=== PATIENT | male | born 1975 | race Two or more races ===

== ENCOUNTER → 2024-12-11 | Outpatient (CLI) | payer BC, SELFPAY ==
[2024-12-11 14:16] LABS: Collection Type, Urine Clean Catch
[2024-12-11 15:56] LABS: Bilirubin,Urine 1+ (Negative); Blood,Urine Negative (Negative); Clarity,Urine Clear (Clear/Hazy); Color,Urine Drk-Yellow (Lt Yel-Yel); Glucose, Urine Trace (Negative); Ketones,Urine 1+ (Negative); Leukocyte Esterase,Urine Negative (Negative); Nitrite,Urine Positive (Negative); Protein,Urine 1+ (Neg - Trace); RBC,Urine 5 /hpf (0-3); Specific Gravity,Urine 1.034 (1.001-1.035); Squamous Epithelial Cell,Urine 1 /hpf (0-5); WBC,Urine < 1 /hpf (0-5)
== END | disposition home or self-care (01) ==
LOC: SLDO 14:08
PROVIDERS: PCP Specialist; Referring Provider Specialist; Visit Provider Specialist
DX: N39.0 Urinary tract infection, site not specified (principal)
CPT/HCPCS: 81001; 87086

== ENCOUNTER → 2024-12-11 | Outpatient (CLI) | payer OTHER, SELFPAY ==
--- NOTE | 2024-12-11 | XR_ITS ---
Examination: Retroperitoneal ultrasound, complete Technique: Multiple high resolution grayscale images of the retroperitoneum obtained, including kidneys and bladder. Exam date and time:December 11, 2024 at 1433 hours INDICATIONS: Right flank pain beginning 2 days ago, history urinary tract infections FINDINGS: Right kidney 10.7 cm cortex 2.0 cm 9 mm lower pole calculus Left kidney 10.8 cm cortex 2.8 cm Midpole 7 mm calculus Moderate bilateral renal parenchymal scar formation No bladder mass, bladder prevoid volume 146 cc No prostatomegaly IMPRESSION: Bilateral nonobstructing renal calculi
[2024-12-11 16:00] LABS: Prostate Specific Antigen 1.08 ng/mL (0-4.00)
== END | disposition home or self-care (01) ==
LOC: CDIM 14:16 → COPL 14:46
PROVIDERS: PCP Specialist; Referring Provider Specialist; Visit Provider Radiology Diagnostic Radiology
DX: N20.0 Calculus of kidney (principal); N40.1 Benign prostatic hyperplasia with lower urinary tract symptoms
CPT/HCPCS: 36415; 76770; 84153

== ENCOUNTER → 2025-02-21 | Outpatient (CLI) | payer BC, SELFPAY ==
[2025-02-21 11:38] LABS: Collection Type, Urine Clean Catch; Squamous Epithelial Cell,Urine 0 /hpf (0-5)
[2025-02-21 12:18] LABS: Bilirubin,Urine Negative (Negative); Blood,Urine Negative (Negative); Clarity,Urine Clear (Clear/Hazy); Color,Urine Lt-Yellow (Lt Yel-Yel); Glucose, Urine Negative (Negative); Ketones,Urine Negative (Negative); Leukocyte Esterase,Urine Negative (Negative); Nitrite,Urine Negative (Negative); PH,Urine 7.0 (5.0-7.0); Protein,Urine Negative (Neg - Trace); RBC,Urine 3 /hpf (0-3); Specific Gravity,Urine 1.016 (1.001-1.035); Urobilinogen,Urine Negative mg/dL (0.0-1.0); WBC,Urine < 1 /hpf (0-5)
== END | disposition home or self-care (01) ==
LOC: SLDO 11:28
PROVIDERS: PCP Specialist; Referring Provider Specialist; Visit Provider Specialist
DX: R10.9 Unspecified abdominal pain (principal); Z87.442 Personal history of urinary calculi
CPT/HCPCS: 81001; 87086

== ENCOUNTER → 2025-02-21 | Outpatient (CLI) | payer OTHER, SELFPAY ==
--- NOTE | 2025-02-21 | XR_ITS ---
Examination: Retroperitoneal ultrasound, complete Technique: Multiple high resolution grayscale images of the retroperitoneum obtained, including kidneys and bladder. Exam date and time:February 21, 2025 1118 hours INDICATIONS: Onset right flank pain today, history kidney stones FINDINGS: Right kidney 10.2 cm renal cortex 2.0 cm Multiple renal calculi, the largest in the midpole 6 mm lower pole 7 mm Left kidney 11.6 cm cortex 2.3 cm 7 mm lower pole calculus No hydronephrosis Contracted urinary bladder No prostatomegaly IMPRESSION: Bilateral nonobstructing renal calculi
== END | disposition home or self-care (01) ==
PROVIDERS: PCP Specialist; Referring Provider Specialist; Visit Provider Specialist
DX: N20.0 Calculus of kidney (principal)
CPT/HCPCS: 76770

== ENCOUNTER → 2025-04-27 | Outpatient (CLI) | payer BC, SELFPAY ==
--- NOTE | 2025-04-27 14:07 | XR_ITS ---
Examination: Retroperitoneal ultrasound, complete Technique: Multiple high resolution grayscale images of the retroperitoneum obtained, including kidneys and bladder. Exam date and time:April 27, 2025, 1422 hours INDICATIONS: Onset right flank pain today FINDINGS: Right kidney 11.2 cm cortex 2.2 cm Left kidney 11.5 cm cortex 2.4 cm Moderate renal scar formation No hydronephrosis No bladder mass or bladder calculi Bladder prevoid volume 128 cc No prostatomegaly no prostate nodules IMPRESSION: Moderate renal scar formation, no hydronephrosis or renal calculi
== END | disposition home or self-care (01) ==
PROVIDERS: PCP Specialist; Referring Provider Specialist; Visit Provider Specialist
DX: N28.89 Other specified disorders of kidney and ureter (principal)
CPT/HCPCS: 76770

== ENCOUNTER → 2025-04-27 | Outpatient (CLI) | payer BC, SELFPAY ==
[2025-04-27 14:09] LABS: Collection Type, Urine Clean Catch; Squamous Epithelial Cell,Urine 0 /hpf (0-5); WBC,Urine 0 /hpf (0-5)
[2025-04-27 14:51] LABS: Bilirubin,Urine Negative (Negative); Blood,Urine Negative (Negative); Clarity,Urine Clear (Clear/Hazy); Color,Urine Colorless (Lt Yel-Yel); Glucose, Urine Negative (Negative); Ketones,Urine Negative (Negative); Leukocyte Esterase,Urine Negative (Negative); Nitrite,Urine Negative (Negative); PH,Urine 7.5 (5.0-7.0); Protein,Urine Negative (Neg - Trace); RBC,Urine < 1 /hpf (0-3); Specific Gravity,Urine 1.003 (1.001-1.035); Urobilinogen,Urine Negative mg/dL (0.0-1.0)
== END | disposition home or self-care (01) ==
LOC: SLDO 14:00
PROVIDERS: PCP Specialist; Referring Provider Specialist; Visit Provider Specialist
DX: N20.0 Calculus of kidney (principal)
CPT/HCPCS: 81001; 87086

== ENCOUNTER 2025-05-02 12:47 | Observation (INO) | payer BC, SELFPAY ==
[2025-05-02] VITALS (13 sets, daily range): BP systolic 128–158; BP diastolic 67–98; PULSE 72–90; RESP 16–99; TEMP 36.2–37.1; O2SAT 95–100; BMI 28.3; BMI 29.0
--- NOTE | 2025-05-02 13:05 | EKG_ITS ---
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
--- NOTE | 2025-05-02 13:07 | PD.EDABDPN ---
ED Abdominal Pain RME/HPI General Chief Complaint: Abdominal Pain Stated complaint: ACUTE APPENDICITIS Time seen by provider: 05/02/25 13:01 Arrival date/time: 05/02/25 12:47 RME / HPI RME / HPI narrative: 50-year-old male patient with significant history of hypertension, was sent to us by PCP for acute appendicitis. Patient has been having right lower quadrant pain for the last 5 days, associated with nausea. Denies any fever denies any vomiting denies any diarrhea constipation. Patient went to PCP today and CT scan of the abdomen and pelvis showed acute appendicitis and was referred to us right away. Was given ceftriaxone IM in the clinic. Last p.o. intake candy bar 30 minutes ago. Related Data Home Medications ?Medication ?Instructions ?Recorded ?Confirmed lisinopril 20 mg tablet 20 mg PO QDAY #0 tabs 10/01/16 Previous Rx's ?Medication ?Instructions ?Recorded Hydrocodone/Acetaminophen * (NORCO 1 tab PO Q6H PRN PAIN #12 tabs 10/01/16 5/325 *) ibuprofen 600 mg tablet 600 mg PO Q6HR PRN PAIN #20 tabs 10/01/16 Allergies Allergy/AdvReac Type Severity Reaction Status Date / Time No Known Allergies Allergy Verified 05/02/25 12:51 Review of Systems Review of Systems Narrative Review of Systems: Review of system reviewed and within normal limits except mentioned in HPI ED Exam Narrative Physical exam: VITAL SIGNS: Reviewed. GENERAL APPEARANCE: Alert and interactive, follows commands, no acute distress, HEAD AND FACE: Non-traumatic. ENT: PERRL, pink conjunctivitis, eyelid no trauma, Mucous membrane moist. NECK: Supple, nontender, no nuchal rigidity. CHEST: No tenderness, no crepitus, no paradoxical movement, no retractions. LUNGS: Clear, well ventilated, symmetric, no rales, no wheezing, no ronchi, no stridor, good breath sounds bilaterally. HEART: Regular rate, regular rhythm, no murmur, no gallops. ABDOMEN: Soft, positive bowel sounds, nondistended, no guarding, + right lower quadrant tenderness, no rebound, no masses, RECTAL: Deferred. GENITAL: Deferred. NEUROLOGICAL: Gross motor function intact sensory function intact, Appropriate for age. MUSCULOSKELETAL: low back nontender, full range of motion. EXTREMITIES: Nontender, full range of motion. SKIN: Color pink, dry, no rash, no lacerations, no abrasions, no contusions. LYMPHATICS: Deferred. Course Quality Measures none Orders Category Date Time Status Patient Condition Routine Admission 05/02/25 15:[address] in Observation Status Routine Admission 05/02/25 15:35 Active Activity as Tolerated Routine Care 05/02/25 15:[address] Screening NOW Care 05/02/25 13:32 Active EKG (ED ONLY) *Do not use* NOW Care 05/02/25 13:06 Completed Obtain Written Consent For: NOW Care 05/02/25 15:35 Active Consult to General Surgery Stat Cons 05/02/25 15:[address] abdomen pelvis w con Stat Exams 05/02/25 13:32 Completed EKG (ED Only) Stat Exams 05/02/25 13:05 Draft CBC [CBC] Stat Lab 05/02/25 13:17 Completed CMP [Comprehensive Metabolic Panel] Stat Lab 05/02/25 13:17 Completed CRP [C-Reactive Protein] Stat Lab 05/02/25 13:17 Completed PTT [Partial Thromboplastin Time] Stat Lab 05/02/25 13:17 Completed UA, C/S IF [Urinalysis, C/S if Indicated] Stat Lab 05/02/25 13:06 Ordered Piper/Tazo 3.375 gm Premix [Zosyn] Med 05/02/25 13:14 Discontinued 3.375 gm in 50 ml IV X1 Ringers Lactated 1000 ml [Lactated Ringers] 1,000 ml Med 05/02/25 13:15 Discontinued IV 999 mls/hr Sodium Chloride 0.9% 1000 ml [Ns] 1,000 ml Med 05/02/25 15:45 Ordered IV 100 mls/hr Code Status Routine Oth 05/02/25 15:35 Ordered Vital Signs Vital signs: Vital Signs Temperature 98.7 F 05/02/25 12:58 Pulse Rate 87 05/02/25 12:58 Respiratory Rate 16 05/02/25 12:58 Blood Pressure 154/98 H 05/02/25 12:58 Pulse Oximetry (%) 98 05/02/25 12:58 Oxygen Delivery Method Room Air 05/02/25 12:58 Abdominal Pain MDM MDM Narrative MDM Narrative:: 50-year-old male patient with significant history of hypertension, was sent to us by PCP for acute appendicitis. Patient has been having right lower quadrant pain for the last 5 days, associated with nausea. Denies any fever denies any vomiting denies any diarrhea constipation. Patient went to PCP today and CT scan of the abdomen and pelvis showed acute appendicitis and was referred to us right away. Was given ceftriaxone IM in the clinic. Last p.o. intake candy bar 30 minutes ago. Patient's workup today all came back unremarkable no leukocytosis. CT scan of the abdomen with contrast showed acute appendicitis Results discussed with the surgeon and the patient who decided to admit the patient for appendectomy. Patient received IV Zosyn. Patient data External records reviewed:: None Clinical information provided by:: patient Social determinants that could affect healthcare access:: none Patient has the following chronic illnesses:: Hypertension How is presenting disease/condition affected by chronic disease/condition?: uneffected by Evaluation data The following diagnostics were reviewed and interpreted by me:: lab results and radiology exam(s) Lab and/or radiology exams considered but not ordered:: None Interpretation Summary: See results MDM Medications / Prescriptions Medications or Prescriptions considered but not ordered:: None Medication administrations:: Medication Administration History Sodium Chloride (Ns) 1,000 mls @ 100 mls/hr IV .Q10H JASMINE Stop: 06/01/25 15:44 Discontinued Medications Piperacillin/Tazobactam/Dextrose (Zosyn) 3.375 gm in 50 mls @ 100 mls/hr IV X1 ONE; Protocol Stop: 05/02/25 13:43 Last Infusion: 05/02/25 14:39 Dose: Infused Documented By: Admin: 05/02/25 13:54 Dose: 100 mls/hr Documented By: ED Lactated Ringer's (Lactated Ringers) 1,000 mls @ 999 mls/hr IV .Q1H1M ONE Stop: 05/02/25 14:15 Last Admin: 05/02/25 15:13 Dose: 999 mls/hr Documented By: ED IV fluids IV Zosyn Consultations Consultation(s) initiated? (list below): Yes Consultation #1 (Physician, Specialty, Details): Dr Welsh, general surgeon on-call, who examined the patient in the ED and admitted the patient Diagnosis Differential diagnosis abdominal pain: abdominal pain, acute appendicitis and constipation Most likely diagnosis given after review of the tests above:: Acute appendicitis Admission Indicated Admission indicated?: not indicated Admission Request Was there a request for admission?: Yes Admission Attestation Admission request attestation: Dr Montoya agrees to accept the patient for admission. Disposition Plan Disposition Plan: Admit Discharge Plan Plan Patient Disposition: Admit Acute Care w/in Hospital Prescriptions/Referrals Prescriptions/Med Rec: No Action lisinopril 20 MG tablet 20 mg PO QDAY Qty: 0 ibuprofen 600 MG tablet 600 mg PO Q6HR PRN (Reason: PAIN) Qty: 20 0RF Hydrocodone/Acetaminophen * (NORCO 5/325 *) 1 TAB tablet 1 tab PO Q6H PRN (Reason: PAIN) Qty: 12 0RF Referrals: No Primary/Family,Physician [Primary Care Provider] - In 1 week Problem List Clinical Impression: Acute appendicitis Patient/Caregiver Discharge Instructions Print Language: Pakistani Stand Alone Forms: Raissa Award Info., Patient Portal Info Letter
[2025-05-02 13:30] LABS: Basophils # (Auto) 0.0 Thou/mm3 (0.0-0.2); Basophils % (Auto) 0 % (0-2.5); Eosinophils # (Auto) 0.0 Thou/mm3 (0.0-0.5); Eosinophils % (Auto) 0 % (0-10); Hematocrit 44.4 % (41.0-53.0); Hemoglobin 15.5 g/dL (13.5-16.0); Immature Granulocytes Auto 0.01 Thou/mm3 (0.00-0.00); Lymphocytes # (Auto) 2.3 Thou/mm3 (1.0-4.8); Lymphocytes % (Auto) 30 % (10-50); Mean Corpuscular HGB Conc 34.9 g/dl (31.0-37.0); Mean Corpuscular Hemoglobin 30.0 pg (25.0-35.0); Mean Corpuscular Volume 86 fL (80-100); Monocytes # (Auto) 0.6 Thou/mm3 (0.0-0.8); Monocytes % (Auto) 8 % (0-12); Neutrophils # (Auto) 4.6 Thou/mm3 (1.8-7.7); Neutrophils % (Auto) 61 % (37-80); Nucleated Red Blood Cell # 0.00 Thou/mm3 (0.00-0.00); Nucleated Red Blood Cell % 0 /100 WBC (0); Platelet Count 197 Thou/mm3 (140-440); RDW Standard Deviation 40.0 fL (35.1-43.9); Red Blood Count 5.17 Miln/mm3 (4.50-5.90); White Blood Count 7.5 Thou/mm3 (3.8-10.6)
--- NOTE | 2025-05-02 13:30 | PC.NURSE ---
Pt. here from home to room 10, pt.'s son is bedside, pt. states he was sent here for acute appendicitis, pt.'s states he had a CT done this morning that was ordered by his primary for right lower abdominal pain that started back in November, pt. states all along he thought he had kidney stones, pt. states his primary would give him antibiotics and he would feel better, pt. states on Wednesday the pain started back again and his primary ordered the CT for this am. Pt. states he has nausea but no vomiting. Pt. son is bedside. Pt. sitting up in bed, pt. states he is waiting to have a CT with contrast done.
--- NOTE | 2025-05-02 13:32 | XR_ITS ---
Examination: CT abdomen with intravenous contrast CT pelvis with intravenous contrast 2-D coronal reconstructions 2-D sagittal reconstructions Date and time of exam:AprilMay 02, 2025, 1435 hours INDICATIONS: Onset right lower abdominal pain this week COMPARISON: May 02, 2025 10:32 AM. CTDI: vol (mGy) 7.29 DLP: (mGycm) 127 Technique: Multiple axial sections of the abdomen and pelvis have been obtained. 64 slice high-resolution scanner used. 3 mm axial sections have been obtained, post intravenous injection 60 cc [id number] 2-D sagittal, coronal reconstructions obtained. Low dose protocols were performed. One or more of the following dose reduction techniques were used; automated exposure control, adjustment of the mA and/or KV according to patient size, use of iterative reconstruction technique. Findings: No focal liver or splenic lesions No gallstones No pancreatic or adrenal mass No renal or ureteral calculi, no hydronephrosis Appendix is inflamed enlarged and projects medial and below the cecum No pelvic abscess Colonic diverticulosis Contracted urinary bladder IMPRESSION: Findings most consistent with early acute appendicitis, the appearance should be clinically correlated
[2025-05-02 13:38] LABS: Partial Thromboplastin Time 27.1 Seconds (22.0-36.0)
[2025-05-02 13:49] LABS: Alanine Aminotransferase 24 U/L (10-49); Albumin, Serum 4.6 gm/dL (3.5-5.0); Albumin/Globulin Ratio 1.6 (1.2-2.2); Alkaline Phosphatase 71 U/L (46-116); Anion Gap 7 (7-16); Aspartate Amino Transferase 19 U/L (0-34); BUN/Creatinine Ratio 11 Ratio (12-20); Bilirubin,Total 1.3 mg/dL (0.3-1.2); Blood Urea Nitrogen 11 mg/dL (9-23); Calcium 9.5 mg/dL (8.3-10.6); Calcium (Corrected) 9.5 mg/dL (8.5-10.1); Carbon Dioxide 31.1 mMol/L (20.0-31.0); Chloride 103 mMol/L (98-107); Creatinine (Component) 1.0 mg/dL (0.6-1.3); Estimated Creatinine Clearance 86.6 mL/min (>60); Globulin 2.8 gm/dL (2.3-3.5); Glucose 121 mg/dL (74-106); Osmolality,Calculated 281 (275-295); Potassium 4.3 mMol/L (3.4-5.1); Sodium 141 mMol/L (136-145); Total Protein 7.4 gm/dL (5.7-8.2); eGFR > 60 See Note
[2025-05-02] MEDS: PIPER/TAZO 3.375 GM PREMIX 3.375 GM/50 ML BAG IV ×2 (13:54→20:24)
[2025-05-02 14:09] LABS: C-Reactive Protein 1.2 mg/dL (0.0-0.9)
[2025-05-02] MEDS: RINGERS LACTATED 1000 ML 1,000 ML 999 ML IV (15:13)
[2025-05-02 15:51] LABS: Collection Type, Urine Clean Catch
[2025-05-02 16:01] LABS: Bacteria,Urine Rare; Bilirubin,Urine Negative (Negative); Blood,Urine Negative (Negative); Clarity,Urine Clear (Clear/Hazy); Color,Urine Lt-Yellow (Lt Yel-Yel); Culture Indicated,Urine Not Indicated; Glucose, Urine Negative (Negative); Ketones,Urine Negative (Negative); Leukocyte Esterase,Urine Negative (Negative); Nitrite,Urine Negative (Negative); PH,Urine 7.0 (5.0-7.0); Protein,Urine Negative (Neg - Trace); RBC,Urine 1 /hpf (0-3); Specific Gravity,Urine 1.023 (1.001-1.035); Squamous Epithelial Cell,Urine < 1 /hpf (0-5); Urobilinogen,Urine Negative mg/dL (0.0-1.0); WBC,Urine < 1 /hpf (0-5)
[2025-05-02] MEDS: SODIUM CHLORIDE 0.9% 1000 ML 1,000 ML 100 ML IV ×2 (16:32→22:29)
--- NOTE | 2025-05-02 17:44 | ESHP_ITS ---
HPI Date of Admission 05/02/25 15:35 Chief Complaint Chief Complaint: Patient is admitted with the complaints of acute appendicitis HPI History of present illness revealed that the patient has been having pain in the right flank for about 5 days the pain is intermittent and not very severe and not crescendo type. Patient denies any history of vomiting but he was nauseated. He was eating well and his bowel movements were normal. He was seen by his family physician patient had a CT scan of the abdomen today and it showed acute appendicitis. Therefore he was advised to go to the emergency room. Dr. Stephenson who is giving him some pain medication with Toradol. Patient had a similar problem in November of this year and again in January of this year which resolved spontaneously. The first time he took some antibiotics p.o. patient denies any other major medical problems. 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 Meds Home Medications and Allergies Home Medications ?Medication ?Instructions ?Recorded ?Confirmed ?Type lisinopril 20 mg tablet 20 mg PO QDAY #0 tabs History Allergies Allergy/AdvReac Type Severity Reaction Status Date / Time No Known Allergies Allergy Verified 05/02/25 12:51 Exam Vital Signs Temp Pulse Resp BP Pulse Ox O2 Del Method 97.4 F 79 16 139/98 H 95 Room Air 05/02/25 17:00 05/02/25 17:00 05/02/25 17:00 05/02/25 17:00 05/02/25 17:00 05/02/25 17:00 Narrative Exam Physical examination revealed a well-built well-nourished middle-aged male who is 5 foot 5 inches tall weighing 174 pounds with BMI of 29 Constitutional Constitutional: mild distress Routine Neck Exam Comments: Within normal limits Routine Respiratory Exam Comments: Good breath sounds on both sides Routine Cardiovascular Exam Comments: Sinus rhythm Routine Abdominal Exam Comments: Abdomen has some tenderness on the suprapubic region but there is no rebound or rigidity or McBurney's point tenderness. Bowel sounds are present but hypoactive Routine Rectal Exam Comments: Deferred Routine Exam Comments: Deferred Routine Extremities Exam Comments: Within normal limits Results Results: Laboratory Laboratory Narrative: Patient patient's laboratory workup showed no evidence of leukocytosis and they are all within normal limits Results: Imaging Imaging narrative: CT scan of the abdomen showed enlarged appendix with some Jamie appendiceal inflammation suggesting early appendicitis Assessment & Plan Additional Assessment Additional comments: Impression: Abdominal pain of unknown etiology Rule out appendicitis Plan Plan: I had a lengthy discussion with the patient and his regarding his condition. Patient does not have any significant abdominal pain or tenderness to correlate in acute appendicitis clinically. However there is an enlarged appendix on the CT scan below and medial to the cecum. This was confirmed by 2 CT scans 1 with contrast and 1 without contrast I gave him the option of antibiotic therapy for 1 day and then p.o. antibiotics as an outpatient. Since the patient has had repeated episodes he wants to make sure that he does not come again with a similar problem. I do not have any assurance that the present problem is acute appendicitis but nevertheless appendix is enlarged and removal is probably indicated on her recurrent abdominal pain I explained to him that the laparoscopic approach would be performed and the risk of the operation including bowel injury bleeding and the need for open appendectomy were all explained to the patient. He is agreeable to proceed with surgery. Quality Measures Quality Measures none
--- NOTE | 2025-05-02 19:16 | SUR.PHASEI ---
pt received to [facility]. vss. breathing even and unlabored. denies pain and nausea. dressings intact to abdomen x3 gauze and metapore tape. report from dr siu, dr sanchez and nurse peter.
--- NOTE | 2025-05-02 19:18 | ESOP_ITS ---
Date of Procedure 05/02/25 Pre Op Diagnosis Acute appendicitis Post Op Diagnosis Same Procedure Laparoscopic appendectomy Findings Patient is found to have inflamed appendix which was firmly adherent to the posterior abdominal wall but there is no purulent material. This appeared chronic infection of the appendix Procedure Description After the patient was placed in supine position and anesthesia was administered with endotracheal intubation. Abdomen was prepped with ChloraPrep solution and draped in a sterile manner. A timeout was performed and a small incision was made just above the umbilicus. Fascia was cleaned and Veress needle was inserted to obtain a pneumoperitoneum up to 15 mmHg. Then I introduced a 12 mm trocar at the umbilicus with a 10 mm camera. Patient was kept in Trendelenburg position with the left lateral tilt. Intra-abdominal organs were visualized and this showed omentum covering the right lower quadrant. A 5 mm trocar was inserted in the right lower quadrant under direct vision and using a laparoscopic Oliverio I move the omentum and identified the appendix. Appendix was inflamed in its entire length and was located medial to the cecum and inferior to the cecum and was stuck to the posterior abdominal wall making it difficult to retract. Another 5 mm trocar was inserted in the left lower quad rant under direct vision and using Harmonic gracy I dissected the mesoappendix cauterizing the vessels. When the base of the appendix was reached this was stapled using an Endo cutter 35 power frankie. Then the appendix was retrieved through the Endopouch through the umbilical port. Then after irrigating and cleaning the pelvis and the right lower quadrant all the trocars were pulled out and the pneumoperitoneum was let out. Fascia was closed with interrupted 0 Ethibond and then I injected half percent Marcaine with epinephrine for analgesia. Skin was then closed with interrupted 4-0 nylon stitches and a Tegaderm dressing was applied. Patient tolerated the procedure well and returned to recovery room in stable condition. Anesthesia GETA Pathology / specimen Other IVF Infused 800 Estimated Blood Loss 50 Condition Stable Disposition PACU Surgeon Kory Welsh MD Surgical Staff Operation Date: 05/02/25 17:45 Case Staff Anesthesiologist: Jesse Castillo RN First Assistant: Zina Moore
--- NOTE | 2025-05-02 19:46 | SUR.PHASEI ---
report called to nurse flakito. vss. breathing even and unlabored. denies pain and nausea. tolerating po ice chips. dressings remain cdi. transported to room via [facility].
[2025-05-02] MEDS: KETOROLAC INJ 30 MG/ML VIAL IVP (20:08)
[2025-05-03] VITALS: BP 151/97; PULSE 81; RESP 18; TEMP 36.1; O2SAT 96
[2025-05-03] MEDS: KETOROLAC INJ 30 MG/ML VIAL IVP (03:41)
[2025-05-03 04:00] VITALS: BP 139/88; PULSE 79; RESP 18; TEMP 36.1; O2SAT 96
[2025-05-03] MEDS: PIPER/TAZO 3.375 GM PREMIX 3.375 GM/50 ML BAG IV ×2 (05:24→13:32)
[2025-05-03 05:31] LABS: Basophils # (Auto) 0.0 Thou/mm3 (0.0-0.2); Basophils % (Auto) 0 % (0-2.5); Eosinophils # (Auto) 0.0 Thou/mm3 (0.0-0.5); Eosinophils % (Auto) 0 % (0-10); Hematocrit 43.4 % (41.0-53.0); Hemoglobin 14.8 g/dL (13.5-16.0); Immature Granulocytes Auto 0.03 Thou/mm3 (0.00-0.00); Lymphocytes # (Auto) 1.0 Thou/mm3 (1.0-4.8); Lymphocytes % (Auto) 12 % (10-50); Mean Corpuscular HGB Conc 34.1 g/dl (31.0-37.0); Mean Corpuscular Hemoglobin 29.5 pg (25.0-35.0); Mean Corpuscular Volume 87 fL (80-100); Monocytes # (Auto) 0.3 Thou/mm3 (0.0-0.8); Monocytes % (Auto) 3 % (0-12); Neutrophils # (Auto) 7.4 Thou/mm3 (1.8-7.7); Neutrophils % (Auto) 85 % (37-80); Nucleated Red Blood Cell # 0.00 Thou/mm3 (0.00-0.00); Nucleated Red Blood Cell % 0 /100 WBC (0); Platelet Count 201 Thou/mm3 (140-440); RDW Standard Deviation 40.6 fL (35.1-43.9); Red Blood Count 5.01 Miln/mm3 (4.50-5.90); White Blood Count 8.8 Thou/mm3 (3.8-10.6)
[2025-05-03 05:50] LABS: Anion Gap 9 (7-16); Carbon Dioxide 28.5 mMol/L (20.0-31.0); Chloride 103 mMol/L (98-107); Potassium 4.4 mMol/L (3.4-5.1); Sodium 140 mMol/L (136-145)
[2025-05-03 06:45] VITALS: PULSE 69; RESP 16; RESP 99
[2025-05-03 08:00] VITALS: BP 155/96; PULSE 74; RESP 16; TEMP 36.5; O2SAT 99
[2025-05-03] MEDS: SODIUM CHLORIDE 0.9% 1000 ML 1,000 ML 100 ML IV (11:26)
[2025-05-03 12:20] VITALS: BP 144/91; PULSE 74; RESP 16; TEMP 36.9; O2SAT 100
--- NOTE | 2025-05-03 12:51 | PD.SURPROG ---
Documentation for date of: 05/03/25 Subjective Subjective Brief History: History of present illness revealed that the patient has been having pain in the right flank for about 5 days the pain is intermittent and not very severe and not crescendo type. Patient denies any history of vomiting but he was nauseated. He was eating well and his bowel movements were normal. He was seen by his family physician patient had a CT scan of the abdomen today and it showed acute appendicitis. Therefore he was advised to go to the emergency room. Dr. Stephenson who is giving him some pain medication with Toradol. Patient had a similar problem in November of this year and again in January of this year which resolved spontaneously. The first time he took some antibiotics p.o. patient denies any other major medical problems. 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 He passed flatus and tolerated clear liquids Exam Vital Signs Temp Pulse Resp BP Pulse Ox O2 Del Method O2 Flow Rate 98.5 F 74 16 144/91 H 100 Room Air 8 05/03/25 12:20 05/03/25 12:20 05/03/25 12:20 05/03/25 12:20 05/03/25 12:20 05/03/25 12:20 05/02/25 19:16 His vital signs are normal Routine Abdominal Exam Comments: Abdominal examination is negative Results Results: Laboratory Laboratory Narrative: Lab results are normal Assessment & Plan Assessment Additional comments: Impression: Stable postoperative recovery following laparoscopic appendectomy Plan Plan: We shall discharge him today and follow him up next week PROCEDURES: Procedures Laparoscopic appendectomy
== END 2025-05-03 14:25 | disposition home or self-care (01) ==
LOC: SERX 15:45 → S3NX 05-03 12:53 → SERHOLD 05-04 11:07
PROVIDERS: Nurse Practitioner Family; Admitting Provider Surgery; Emergency Provider Family Medicine; Visit Provider Surgery
PROC: 0DTJ4ZZ Resection of Appendix, Percutaneous Endoscopic Approach (ICD-10-PCS; CPT 44970; principal; 2025-05-02 17:30)
DX: K35.80 Unspecified acute appendicitis (principal); Z01.810 Encounter for preprocedural cardiovascular examination
CPT/HCPCS: 44970; 36415; 74177; 80051; 80053; 81001; 85025; 85730; 86140; 93005; 94664; 96361; 96365; 96375; 96376; 99284; A4649; G0378; J1885; J2543; J7030; J7120; Q9967

== ENCOUNTER → 2025-05-02 | Outpatient (CLI) | payer BC, SELFPAY ==
--- NOTE | 2025-05-02 09:59 | XR_ITS ---
Examination: CT abdomen and pelvis without contrast. Coronal 3-D reconstructions. Sagittal 2-D reconstructions. Date and time of exam:May 02, 2025 1031 hours INDICATIONS: Right flank pain radiating to the abdomen beginning one week ago CTDI: vol (mGy): 7.46 DLP: (mGycm): 432 Technique: Axial images of the abdomen have been obtained, 3 mm slice thickness Intravenous contrast material has not been administered. Low dose protocols were performed. One or more of the following dose reduction techniques were used; automated exposure control, adjustment of the mA and/or KV according to patient size, use of iterative reconstruction technique. Findings: No focal liver or splenic lesions No gallstones No pancreatic or adrenal mass. No renal or ureteral calculi, no hydronephrosis Aorta normal size Enlarged inflamed appendix below and medial to the cecum No pelvic abscess Colonic diverticulosis Bladder intact IMPRESSION: Acute appendicitis, no pelvic abscess
== END | disposition home or self-care (01) ==
PROVIDERS: PCP Specialist; Referring Provider Specialist; Visit Provider Specialist
DX: K35.80 Unspecified acute appendicitis (principal)
CPT/HCPCS: 74176